=== PATIENT | female | born 1995 | race Caucasian/White ===

== ENCOUNTER → 2023-10-16 07:39 | Outpatient (REF) | payer BC, SELFPAY ==
[2023-10-20 17:06] LABS: AFP Multiple of Median (MoM) 1.24; Dating LMP CONF by US; Family Neural Tube Defect Hx No; Insulin Req Maternal Diabetes No; Maternal Age at Delivery 30.4 yr; Maternal Race Nonblack; Maternal Screen Interpretation Screen Neg; Maternal Weight 203.0 lbs.; Number of Fetuses Singleton; Patient's AFP Concentration 54 ng/mL; Smoking No
== END ==
LOC: REG 07:39
PROVIDERS: ATTENDING PHYSICIAN Obstetrics & Gynecology; FAMILY PHYSICIAN Family Medicine
DX: Z34.90 Encounter for supervision of normal pregnancy, unspecified, unspecified trimester (principal)
CPT/HCPCS: 36415; 82105

== ENCOUNTER → 2023-12-22 13:25 | Outpatient (REF) | payer BC, SELFPAY | LOC: PNTC 13:25 | PROVIDERS: ATTENDING PHYSICIAN Obstetrics & Gynecology | DX: Z87.59 Personal history of other complications of pregnancy, childbirth and the puerperium (principal) | CPT/HCPCS: 76816 ==

== ENCOUNTER → 2024-02-14 14:43 | Outpatient (REF) | payer BC, SELFPAY | LOC: PNTC 14:43 | PROVIDERS: ATTENDING PHYSICIAN Obstetrics & Gynecology | DX: O13.3 Gestational [pregnancy-induced] hypertension without significant proteinuria, third trimester (principal) | CPT/HCPCS: 59025; 76815 ==

== ENCOUNTER → 2024-02-21 09:45 | Outpatient (REF) | payer BC, SELFPAY | LOC: PNTC 09:45 | PROVIDERS: ATTENDING PHYSICIAN Obstetrics & Gynecology | DX: Z87.59 Personal history of other complications of pregnancy, childbirth and the puerperium (principal) | CPT/HCPCS: 59025; 76815 ==

== ENCOUNTER → 2024-02-28 07:44 | Outpatient (REF) | payer BC, SELFPAY | LOC: PNTC 07:44 | PROVIDERS: ATTENDING PHYSICIAN Obstetrics & Gynecology | DX: Z87.59 Personal history of other complications of pregnancy, childbirth and the puerperium (principal) | CPT/HCPCS: 59025; 76816 ==

== ENCOUNTER 2024-03-02 09:02 | Inpatient (IN) | payer BC, SELFPAY ==
[2024-03-02 09:10] VITALS: BP 120/63; BMI 31.1
[2024-03-02] MEDS: LR 1000 IV ×3 (10:00→18:50)
[2024-03-02] MEDS: PITOCIN 30 UNITS/NSS 500 ML IV (11:48)
[2024-03-02 11:55] LABS: % Basophils 0.2 % (0-2); % Eosinophils 0.3 % (0-6); % Immature Granulocytes 2.4 % (0-0.5); % Lymphocytes 10.8 % (20.5-51.1); % Monocytes 7.1 % (1.7-9.3); % Neutrophils 79.2 % (42.2-75.2); Absolute Immature Granulocytes 0.3 10^3/uL (0-0.05); Absolute Lymphocytes 1.3 10^3/uL (1.2-3.4); Absolute Monocytes 0.9 10^3/uL (0.1-0.6); Absolute Neutrophils 9.8 10^3/uL (1.4-6.5); Hematocrit 35.3 % (37.0-47.0); Hemoglobin 12.2 g/dL (12.0-16.0); Mean Corp Hgb Conc. 34.6 g/dL (33.0-37.0); Mean Corpuscular Hgb 31.2 pg (27.0-31.0); Mean Corpuscular Volume 90.3 fL (81.0-99.0); Mean Platelet Volume 13.1 fL (7.4-10.4); Nucleated Red Blood Cells % 0 %; Platelet Count 151 10^3/uL (130-400); Red Blood Cell Count 3.91 10^6/uL (4.20-5.40); Red Cell Dist. Width 13.8 % (11.5-14.5); White Blood Cell Count 12.3 10^3/uL (4.8-10.8)
[2024-03-02] MEDS: FENTANYL/BUPIVACAINE 100 EPIDURAL (17:15)
[2024-03-02] MEDS: SUBLIMAZE 100 MCG EPIDURAL (17:15)
[2024-03-03 05:22] LABS: Hematocrit 33.6 % (37.0-47.0); Hemoglobin 11.4 g/dL (12.0-16.0)
[2024-03-03] MEDS: SENOKOT-S 1 TABLET PO (09:39)
[2024-03-03] MEDS: PRENATAL PLUS 1 TABLET PO (09:39)
[2024-03-03 16:30] LABS: Syphilis/T. pallidum Ab Reflex Negative (Negative)
[2024-03-03] MEDS: MOTRIN 600 MG PO (18:14)
[2024-03-04] MEDS: PRENATAL PLUS 1 TABLET PO (10:32)
== END 2024-03-04 11:10 | disposition home or self-care (01) | DRG 807 ==
LOC: LDRP 09:02
PROVIDERS: ADMITTING PHYSICIAN Obstetrics & Gynecology; FAMILY PHYSICIAN Family Medicine
PROC: 10907ZC Drainage of Amniotic Fluid, Therapeutic from Products of Conception, Via Natural or Artificial Opening (ICD-10-PCS; 2024-03-02)
PROC: 10E0XZZ Delivery of Products of Conception, External Approach (ICD-10-PCS; 2024-03-02)
DX: O13.4 Gestational [pregnancy-induced] hypertension without significant proteinuria, complicating childbirth (principal); Z37.0 Single live birth; Z3A.39 39 weeks gestation of pregnancy
CPT/HCPCS: 36415; 85014; 85018; 85025; 86780; 86850; 86900; 86901

== ENCOUNTER → 2024-11-29 16:14 | Outpatient (REF) | payer BC, SELFPAY ==
[2024-11-29 17:18] LABS: % Basophils 0.3 % (0-2); % Eosinophils 0.6 % (0-6); % Immature Granulocytes 0.3 % (0-0.5); % Lymphocytes 21.5 % (20.5-51.1); % Monocytes 6.5 % (1.7-9.3); % Neutrophils 70.8 % (42.2-75.2); Absolute Lymphocytes 1.4 10^3/uL (1.2-3.4); Absolute Monocytes 0.4 10^3/uL (0.1-0.6); Absolute Neutrophils 4.7 10^3/uL (1.4-6.5); Hematocrit 40.3 % (37.0-47.0); Hemoglobin 13.6 g/dL (12.0-16.0); Mean Corp Hgb Conc. 33.7 g/dL (33.0-37.0); Mean Corpuscular Hgb 30.8 pg (27.0-31.0); Mean Corpuscular Volume 91.4 fL (81.0-99.0); Mean Platelet Volume 12.1 fL (7.4-10.4); Nucleated Red Blood Cells % 0 %; Platelet Count 195 10^3/uL (130-400); Red Blood Cell Count 4.41 10^6/uL (4.20-5.40); Red Cell Dist. Width 12.4 % (11.5-14.5); White Blood Cell Count 6.6 10^3/uL (4.8-10.8)
[2024-11-29 17:23] LABS: Urine Albumin 1+ (Neg - Trace); Urine Bilirubin Negative (Negative); Urine Character Slightly Cloudy (Clear); Urine Color Yellow; Urine Glucose Negative (Negative); Urine Ketone 2+ (Negative); Urine Leukocyte 3+ (Negative); Urine Nitrite Negative (Negative); Urine Occult Blood 2+ (Negative); Urine Specific Gravity 1.015 (<1.030); Urine Urobilinogen Negative (Neg - 1+)
[2024-11-29 17:35] LABS: ALT (SGPT) 20 U/L (0-35); AST (SGOT) 24 U/L (14-36); Albumin 4.3 g/dl (3.5-5.0); Alkaline Phosphatase 65 U/L (38-126); Blood Urea Nitrogen 18 mg/dl (7-17); Calcium 9.7 mg/dl (8.4-10.2); Carbon Dioxide 25 mmol/L (22-30); Chloride 103 mmol/L (98-107); Glucose 82 mg/dl (70-99); Potassium 4.5 mmol/L (3.5-5.1); Sodium 137 mmol/L (135-145); Total Bilirubin 0.7 mg/dl (0.2-1.3); Total Protein 6.7 g/dl (6.3-8.2); Uric Acid 2.9 mg/dl (2.5-6.2); eGFR > 60.00
[2024-11-29 17:38] LABS: Urine Squamous Cell >30 /LPF (Few)
[2024-11-29 17:39] LABS: Urine Bacteria Many (Negative); Urine White Cell 60-70 /HPF (0-5)
[2024-11-29 17:45] LABS: Protein/creatinine Ratio 0.1; Urine Protein 10 mg/dl
[2024-11-30 08:44] LABS: Glycohemoglobin (HgbA1c) 4.7 % (4.0-5.6)
[2024-11-30 13:40] LABS: Syphilis/T. pallidum Ab Reflex Negative (Negative)
[2024-11-30 18:47] LABS: Rubella Positive
[2024-11-30 18:58] LABS: Hepatitis B Surface Antigen Negative (Negative)
[2024-11-30 19:15] LABS: Hepatitis B Surface Antibody Negative; Hepatitis C Antibody Negative (Negative)
[2024-12-01 15:22] LABS: HIV Combo Negative (Negative)
== END ==
LOC: REG 16:14
PROVIDERS: ATTENDING PHYSICIAN Nurse Practitioner Family; FAMILY PHYSICIAN Family Medicine
DX: Z32.01 Encounter for pregnancy test, result positive (principal); Z34.91 Encounter for supervision of normal pregnancy, unspecified, first trimester
CPT/HCPCS: 36415; 80053; 81003; 81015; 82570; 83036; 84156; 84550; 84702; 85025; 86704; 86706; 86762; 86780; 86803; 86850; 86900; 86901; 87086; 87340; 87389

== ENCOUNTER → 2025-03-01 08:49 | Outpatient (REF) | payer BC, SELFPAY | LOC: PNTC 08:49 | PROVIDERS: ATTENDING PHYSICIAN Obstetrics & Gynecology | DX: Z34.90 Encounter for supervision of normal pregnancy, unspecified, unspecified trimester (principal) | CPT/HCPCS: 76805; 76817 ==

== ENCOUNTER → 2025-05-31 10:45 | Outpatient (REF) | payer BC, SELFPAY | LOC: PNTC 10:45 | PROVIDERS: ATTENDING PHYSICIAN Obstetrics & Gynecology | DX: Z34.93 Encounter for supervision of normal pregnancy, unspecified, third trimester (principal) | CPT/HCPCS: 76816 ==

== ENCOUNTER 2025-07-13 07:52 | Inpatient (IN) | payer BC, SELFPAY ==
[2025-07-13 07:58] VITALS: BP 134/74; BMI 31.6
[2025-07-13] MEDS: LR 1000 IV ×3 (09:01→19:03)
[2025-07-13 09:10] LABS: Hematocrit 35.2 % (37.0-47.0); Hemoglobin 11.8 g/dL (12.0-16.0); Mean Corp Hgb Conc. 33.5 g/dL (33.0-37.0); Mean Corpuscular Volume 92.4 fL (81.0-99.0); Nucleated Red Blood Cells % 0 %; Platelet Count 132 10^3/uL (130-400); Red Cell Dist. Width 13.8 % (11.5-14.5)
[2025-07-13] MEDS: PITOCIN 30 UNITS/NSS 500 ML IV ×2 (10:02→19:37)
[2025-07-13] MEDS: SUBLIMAZE 100 MCG EPIDURAL (18:19)
[2025-07-13] MEDS: FENTANYL/BUPIVACAINE 100 EPIDURAL (18:20)
[2025-07-14 04:15] LABS: Hematocrit 32.6 % (37.0-47.0); Hemoglobin 11.4 g/dL (12.0-16.0)
[2025-07-14] MEDS: COLACE 100 MG PO ×2 (08:34→19:55)
[2025-07-14] MEDS: PRENATAL PLUS 1 TABLET PO (08:34)
[2025-07-14] MEDS: MOTRIN 600 MG PO (08:37)
[2025-07-15] MEDS: COLACE 100 MG PO (08:06)
[2025-07-15] MEDS: PRENATAL PLUS 1 TABLET PO (08:06)
[2025-07-15] MEDS: MOTRIN 600 MG PO (08:08)
[2025-07-17 11:44] LABS: Syphilis/T. pallidum Ab Reflex Negative (Negative)
== END 2025-07-15 10:00 | disposition home or self-care (01) | DRG 807 ==
LOC: LDRP 07:52
PROVIDERS: ADMITTING PHYSICIAN Obstetrics & Gynecology; FAMILY PHYSICIAN Family Medicine
PROC: 10E0XZZ Delivery of Products of Conception, External Approach (ICD-10-PCS; 2025-07-13)
PROC: 3E033VJ Introduction of Other Hormone into Peripheral Vein, Percutaneous Approach (ICD-10-PCS; 2025-07-13)
PROC: 10907ZC Drainage of Amniotic Fluid, Therapeutic from Products of Conception, Via Natural or Artificial Opening (ICD-10-PCS; 2025-07-13)
DX: O69.2XX0 Labor and delivery complicated by other cord entanglement, with compression, not applicable or unspecified (principal); Z37.0 Single live birth; Z3A.39 39 weeks gestation of pregnancy; Z88.1 Allergy status to other antibiotic agents; Z88.2 Allergy status to sulfonamides
CPT/HCPCS: 85014; 85018; 85025; 86780; 86850; 86900; 86901